=== PATIENT | female | born 1985 | race Caucasian/White ===

== ENCOUNTER → 2017-11-06 11:21 | Outpatient (CLI) | payer SELFPAY ==
[2017-11-06 14:19] LABS: Free T3 3.3 pg/mL (2.18-3.98); T4 Free Direct 1.06 ng/dL (0.76-1.46); Thyroid Stim Hormone (TSH) 0.76 uIU/mL (0.358-3.74)
[2017-11-09 11:32] LABS: HPV APTIMA, High Risk Negative (Negative)
== END ==
PROVIDERS: Visit Provider Obstetrics & Gynecology
DX: E04.9 Nontoxic goiter, unspecified (principal); Z12.4 Encounter for screening for malignant neoplasm of cervix
CPT/HCPCS: 36415; 84439; 84443; 84481; 88175; G0145

== ENCOUNTER → 2018-03-19 16:21 | Outpatient (CLI) | payer SELFPAY ==
[2018-03-19 18:22] LABS: Progesterone Level 3.36 ng/mL (See Comment)
[2018-03-19 21:56] LABS: Chlamydia Trachomatis by PCR Negative (Negative); Neisserai gonorrhoeae by PCR Negative (Negative); Probe Check PASS; Sample Adequacy Control PASS; Specimen Processing Control PASS
== END ==
PROVIDERS: Visit Provider Obstetrics & Gynecology
DX: Z11.3 Encounter for screening for infections with a predominantly sexual mode of transmission (principal); O26.851 Spotting complicating pregnancy, first trimester; Z3A.00 Weeks of gestation of pregnancy not specified
CPT/HCPCS: 36415; 84144; 86850; 86900; 87491; 87591

== ENCOUNTER → 2018-06-25 09:20 | Outpatient (CLI) | payer SELFPAY ==
[2018-06-25 11:04] LABS: Progesterone Level 8.01 ng/mL (See Comment)
[2018-06-25 11:12] LABS: hCG Titer Quant., Serum 22475 mIU/mL (<9 non-preg)
[2018-06-25 19:04] LABS: Chlamydia Trachomatis by PCR Negative (Negative); Neisserai gonorrhoeae by PCR Negative (Negative); Probe Check PASS; Sample Adequacy Control PASS; Specimen Processing Control PASS
== END ==
PROVIDERS: Visit Provider Obstetrics & Gynecology
DX: O20.0 Threatened abortion (principal)
CPT/HCPCS: 36415; 84144; 84702; 87491; 87591

== ENCOUNTER → 2018-07-12 10:23 | Outpatient (CLI) | payer SELFPAY ==
[2018-07-12 13:44] LABS: Color, Urine Yellow (Yellow); Glucose, Dipstick Normal (Normal); Ketone-Dipstick Negative (Negative); Leukocyte Esterase-Dipstick Negative /ul (Negative); Nitrite-Dipstick Negative (Negative); Occult Blood-Urine Negative /ul (Negative); Protein-Dipstick Negative (Negative); Specific Gravity, Urine 1.015 (1.002-1.030); Urine Bilirubin Dipstick Negative (Negative); Urine Clarity Sl. Cloudy (Clear); Urine Urobilinogen Normal (Normal)
[2018-07-12 13:57] LABS: Absolute Lymphocyte Count 1.65 X10^3/ul (0.83-4.51); Absolute Neutrophil Count 7.8 X10^3/uL (2.0-7.7); Basophil# 0.02 X10^3/uL; Basophil% 0.2 % (0-1); Eosinophil# 0.06 X10^3/uL; Eosinophils% 0.6 % (0-5); Hematocrit 38.8 % (37-47); Hemoglobin 12.9 g/dl (12.0-15.0); Lymphocyte # 1.65 X10^3/ul (4.0); Lymphocyte % 16.1 % (19-41); Mean Corp Hgb Conc 33.2 g/gl (32-36); Mean Corpuscular Hgb 28.6 pg (27.0-32.0); Mean Platelet Vol. 9.8 fl (6.2-12.0); Monocyte% 6.8 % (0-10); Neutrophil # 7.78 X10^3/uL (2.7-7.7); Neutrophil % 76.1 % (47-70); Platelet Count 323 K/mm3 (150-450); RBC Distribution Width SD 41.1 fl (35.1-43.9); Red Blood Count 4.51 M/mm3 (4.2-5.4); White Blood Count 10.2 K/mm3 (4.4-11.0)
[2018-07-12 13:59] LABS: Thyroid Stim Hormone (TSH) 0.35 uIU/mL (0.358-3.74)
[2018-07-12 14:04] LABS: POSITIVE COUNT NO; POSITIVE DIFFERENTIAL NO; POSITIVE MORPHOLOGY NO
[2018-07-12 14:42] LABS: HIV - WCH Non-Reactive (Nonreactive)
[2018-07-13 08:45] LABS: HEPATITIS B SURFACE AG Negative (Negative); Hep C Antibodies <0.1 s/co ratio (0.0-0.9)
[2018-07-19 03:40] LABS: Prenatal RPR NONREACTIVE (NONREACTIVE)
== END ==
PROVIDERS: Visit Provider Obstetrics & Gynecology
DX: Z34.81 Encounter for supervision of other normal pregnancy, first trimester (principal)
CPT/HCPCS: 36415; 81002; 84443; 85025; 86703; 86762; 86803; 87340

== ENCOUNTER → 2018-11-15 11:41 | Outpatient (CLI) | payer SELFPAY ==
[2018-11-15 13:53] LABS: Hematocrit 34.6 % (37-47); Hemoglobin 11.2 g/dL (12.0-15.0); Mean Corp Hgb Conc 32.4 g/dL (32-36); Mean Corpuscular Hgb 28.4 pg (27.0-32.0); Mean Corpuscular Volume 87.8 fL (81-99); Mean Platelet Vol. 9.8 fl (6.2-12.0); Platelet Count 249 K/mm3 (150-450); RBC Distribution Width CV 12.7 % (11.6-14.6); RBC Distribution Width SD 40.2 fl (35.1-43.9); Red Blood Count 3.94 M/mm3 (4.2-5.4); White Blood Count 10.6 K/mm3 (4.4-11.0)
[2018-11-15 13:59] LABS: Glucose Challenge Gest 1H 50g 105 mg/dL (70-140)
== END ==
PROVIDERS: Visit Provider Obstetrics & Gynecology
DX: Z34.82 Encounter for supervision of other normal pregnancy, second trimester (principal)
CPT/HCPCS: 36415; 82950; 85027

== ENCOUNTER 2019-01-17 12:28 | Outpatient (CLI) | payer SELFPAY ==
[2019-01-17] MEDS: 0.9 % NaCl (Sterile) Posiflush 10 mL IV (13:10)
[2019-01-17 13:27] LABS: Hematocrit 36.1 % (37-47); Hemoglobin 11.7 g/dL (12.0-15.0); Mean Corp Hgb Conc 32.4 g/dL (32-36); Mean Corpuscular Hgb 28.6 pg (27.0-32.0); Mean Corpuscular Volume 88.3 fL (81-99); Mean Platelet Vol. 9.7 fl (6.2-12.0); Platelet Count 209 K/mm3 (150-450); RBC Distribution Width CV 15.3 % (11.6-14.6); RBC Distribution Width SD 48.2 fl (35.1-43.9); Red Blood Count 4.09 M/mm3 (4.2-5.4); White Blood Count 10.1 K/mm3 (4.4-11.0)
[2019-01-17 13:36] LABS: Prothrombin Time (Protime)PT. 12.8 SECONDS (11.7-14.9)
[2019-01-17 13:37] LABS: Partial Thromboplast Time 31.1 Seconds (24.1-36.2)
[2019-01-17 13:52] LABS: ALB/GLOB Ratio 0.6 RATIO (0.9-2.4); AST(SGOT) 11 U/L (15-37); Alanine Aminotransfer ALT/SGPT 16 U/L (13-56); Albumin, Serum 2.6 g/dL (3.2-5.0); Alkaline Phosphatase 121 U/L (45-117); Anion Gap 10 (5-15); BUN 9 mg/dL (7-18); BUN/Creat Ratio 16.9 RATIO (10-20); Calcium,Total 8.6 mg/dL (8.5-10.1); Chloride 106 mmol/L (98-107); Creatinine, Serum 0.53 mg/dL (0.55-1.02); EST Glomerular Filtration Rate 140 mL/min (>60); Est Glom Filt Rate - Afr Amer 169 mL/min (>60); Globulin 4.1 g/dL (2.2-4.2); Glucose 90 mg/dL (74-106); Protein, Total 6.7 g/dL (6.4-8.2); Sodium Level 139 mmol/L (136-145)
[2019-01-17 13:55] LABS: Protein, Urine (Random) < 6.0 mg/dL (<11.9)
[2019-01-17 14:28] VITALS: BMI 43.0
[2019-01-17 14:50] LABS: Group B Strep DNA By PCR Negative (Negative); Internal Control PASS; Probe Check PASS; Specimen Processing Control PASS
--- NOTE | 2019-01-17 23:55 | OB.TRI.NOTE ---
- Problem List (1) Gestational hypertension Status: Acute Qualifiers: Trimester: third trimester Qualified Code(s): O13.3 - Gestational [-induced] hypertension without significant proteinuria, third trimester Comment: r/o preeclampsia History of Present Illness Date of Service: 01/17/19 Reason For Visit: R/O PRE E Final DEMAR: 02/11/19 Final DEMAR Source: US <20 weeks Gestational age: 36 weeks 3 days History of Present Illness: 33yo @ 36 /7wga sent to L&D to r/o preeclampsia for elevated BPs. Allergies No Known Allergies Allergy (Verified 01/17/19 14:29) Laboratory Studies: Laboratory Tests 01/17/19 01/17/19 01/17/19 Range/Units 13:20 13:10 13:10 WBC (4.4-11.0) K/mm3 RBC (4.2-5.4) M/mm3 Hgb (12.0-15.0) g/dL Hct (37-47) % MCV (81-99) fL MCH (27.0-32.0) pg MCHC (32-36) g/dL RDW Std Deviation (35.1-43.9) fl RDW Coeff of Frank (11.6-14.6) % Plt Count (150-450) K/mm3 MPV (6.2-12.0) fl PT (11.7-14.9) SECONDS INR APTT (24.1-36.2) Seconds Sodium 139 (136-145) mmol/L Potassium 4.0 (3.5-5.1) mmol/L Chloride 106 (98-107) mmol/L Carbon Dioxide 23.0 (21.0-32.0) mmol/L Anion Gap 10 (5-15) BUN 9 (7-18) mg/dL Creatinine 0.53 L Cancelled Est GFR (MDRD) Af Amer 169 Cancelled Est GFR (MDRD) Non-Af 140 Cancelled BUN/Creatinine Ratio 16.9 (10-20) RATIO Glucose 90 (74-106) mg/dL Uric Acid 4.0 (2.6-6.0) mg/dL Calcium 8.6 (8.5-10.1) mg/dL Total Bilirubin 0.20 (0.20-1.00) mg/dL AST 11 L Cancelled ALT 16 Cancelled Alkaline Phosphatase 121 H (45-117) U/L Total Protein 6.7 (6.4-8.2) g/dL Albumin 2.6 L (3.2-5.0) g/dL Globulin 4.1 (2.2-4.2) g/dL Albumin/Globulin Ratio 0.6 L (0.9-2.4) RATIO U Random Total Protein < 6.0 (<11.9) mg/dL Urine Creatinine 16.60 (NO RANGE EST.) mg/dL Protein/Creatinin Ratio TNP Group B Strep DNA (Negative) Specimen Comment 01/17/19 01/17/19 01/17/19 Range/Units 13:10 13:10 11:50 WBC 10.1 (4.4-11.0) K/mm3 RBC 4.09 L (4.2-5.4) M/mm3 Hgb 11.7 L (12.0-15.0) g/dL Hct 36.1 L (37-47) % MCV 88.3 (81-99) fL MCH 28.6 (27.0-32.0) pg MCHC 32.4 (32-36) g/dL RDW Std Deviation 48.2 H (35.1-43.9) fl RDW Coeff of Frank 15.3 H (11.6-14.6) % Plt Count 209 (150-450) K/mm3 MPV 9.7 (6.2-12.0) fl PT 12.8 (11.7-14.9) SECONDS INR 1.0 APTT 31.1 (24.1-36.2) Seconds Sodium (136-145) mmol/L Potassium (3.5-5.1) mmol/L Chloride (98-107) mmol/L Carbon Dioxide (21.0-32.0) mmol/L Anion Gap (5-15) BUN (7-18) mg/dL Creatinine Est GFR (MDRD) Af Amer Est GFR (MDRD) Non-Af BUN/Creatinine Ratio (10-20) RATIO Glucose (74-106) mg/dL Uric Acid (2.6-6.0) mg/dL Calcium (8.5-10.1) mg/dL Total Bilirubin (0.20-1.00) mg/dL AST ALT Alkaline Phosphatase (45-117) U/L Total Protein (6.4-8.2) g/dL Albumin (3.2-5.0) g/dL Globulin (2.2-4.2) g/dL Albumin/Globulin Ratio (0.9-2.4) RATIO U Random Total Protein (<11.9) mg/dL Urine Creatinine (NO RANGE EST.) mg/dL Protein/Creatinin Ratio Group B Strep DNA Negative (Negative) Specimen Comment Not Reportable Physical Exam Vitals: avss NST - FHR Rate Baby A Baseline: 140 Variability:: Moderate Accelerations:: 15 x 15 Decelerations:: None NST Reactive:: Yes FHR Category:: Category I Uterine Activity:: 0/10 Impression/Plan 33yo with gHTN -No si/sx preeclampsia and labs wnl - status reassuring -d/c home
== END 2019-01-17 16:00 | disposition home or self-care (01) ==
LOC: WPOUT 12:31 → WP 12:31
PROVIDERS: Obstetrics & Gynecology; Referring Provider Obstetrics & Gynecology; Visit Provider Obstetrics & Gynecology
DX: O13.3 Gestational [pregnancy-induced] hypertension without significant proteinuria, third trimester (principal); Z3A.36 36 weeks gestation of pregnancy
CPT/HCPCS: 36415; 59025; 59050; 80053; 82570; 84156; 84550; 85027; 85610; 85730; 87077; 87081; 87186; 87653; 99218; G0378

== ENCOUNTER 2019-01-21 15:00 | Outpatient (CLI) | payer SELFPAY ==
[2019-01-21 15:16] VITALS: BMI 42.7
[2019-01-21 17:27] LABS: Absolute Lymphocyte Count 1.42 X10^3/uL (0.83-4.51); Basophil# 0.01 X10^3/uL; Basophil% 0.1 % (0-1); Eosinophil# 0.04 X10^3/uL; Eosinophils% 0.4 % (0-5); Hematocrit 35.7 % (37-47); Hemoglobin 11.5 g/dL (12.0-15.0); Lymphocyte # 1.42 X10^3/ul (4.0); Lymphocyte % 13.7 % (19-41); Mean Corp Hgb Conc 32.2 g/dL (32-36); Mean Corpuscular Hgb 28.2 pg (27.0-32.0); Mean Corpuscular Volume 87.5 fL (81-99); Mean Platelet Vol. 9.7 fl (6.2-12.0); Monocyte# 0.76 X10^3/uL; Monocyte% 7.3 % (0-10); NRBC Flagged by Analyzer 0 % (0-5); Neutrophil # 8.03 X10^3/uL (2.7-7.7); Neutrophil % 77.6 % (47-70); Platelet Count 209 K/mm3 (150-450); RBC Distribution Width CV 15.3 % (11.6-14.6); RBC Distribution Width SD 48.2 fl (35.1-43.9); Red Blood Count 4.08 M/mm3 (4.2-5.4); White Blood Count 10.4 K/mm3 (4.4-11.0)
[2019-01-21 17:59] LABS: Protein, Urine (Random) 20.9 mg/dL (<11.9); Protein:Creat Ratio 235 mg/g CRE (0-200)
[2019-01-21 18:08] LABS: ALB/GLOB Ratio 0.7 RATIO (0.9-2.4); AST(SGOT) 13 U/L (15-37); Alanine Aminotransfer ALT/SGPT 14 U/L (13-56); Albumin, Serum 2.7 g/dL (3.2-5.0); Alkaline Phosphatase 122 U/L (45-117); Anion Gap 7 (5-15); BUN 9 mg/dL (7-18); BUN/Creat Ratio 16.5 RATIO (10-20); Chloride 106 mmol/L (98-107); Creatinine, Serum 0.55 mg/dL (0.55-1.02); EST Glomerular Filtration Rate 136 mL/min (>60); Est Glom Filt Rate - Afr Amer 165 mL/min (>60); Estimated Creatinine Clearance 125.63 ml/min; Globulin 4.1 g/dL (2.2-4.2); Glucose 93 mg/dL (74-106); Potassium 3.9 mmol/L (3.5-5.1); Protein, Total 6.8 g/dL (6.4-8.2); Sodium Level 137 mmol/L (136-145); Uric Acid 4.3 mg/dL (2.6-6.0)
--- NOTE | 2019-01-28 08:39 | OB.TRI.NOTE ---
- Problem List (1) 37 weeks gestation of Status: Acute (2) Gestational hypertension Status: Acute Qualifiers: Trimester: third trimester Comment: r/o preeclampsia History of Present Illness Date of Service: 01/21/19 Reason For Visit: ELEVATED BP Final DEMAR: 02/11/19 Gestational age: 37 Weeks and 0 Days History of Present Illness: 33yo @ 37wga with c/o elevated BP. She called the office and reported elevated BP and was advised to go to L&D. Denies headache, vision changes. Allergies No Known Allergies Allergy (Verified 01/17/19 14:29) Laboratory Studies: Laboratory Tests 01/21/19 01/21/19 01/21/19 Range/Units 16:50 16:50 16:50 WBC 10.4 (4.4-11.0) K/mm3 RBC 4.08 L (4.2-5.4) M/mm3 Hgb 11.5 L (12.0-15.0) g/dL Hct 35.7 L (37-47) % MCV 87.5 (81-99) fL MCH 28.2 (27.0-32.0) pg MCHC 32.2 (32-36) g/dL RDW Std Deviation 48.2 H (35.1-43.9) fl RDW Coeff of Frank 15.3 H (11.6-14.6) % Plt Count 209 (150-450) K/mm3 MPV 9.7 (6.2-12.0) fl Immature Gran % (Auto) 0.900 (0.0-0.9) % Neut % (Auto) 77.6 H (47-70) % Lymph % (Auto) 13.7 L (19-41) % [place] % (Auto) 7.3 (0-10) % Eos % (Auto) 0.4 (0-5) % Baso % (Auto) 0.1 (0-1) % Absolute Neuts (auto) 8.0 H (2.0-7.7) X10^3/uL Absolute Lymphs (auto) 1.42 (0.83-4.51) X10^3/uL Nucleated RBC % 0 (0-5) % Sodium 137 (136-145) mmol/L Potassium 3.9 (3.5-5.1) mmol/L Chloride 106 (98-107) mmol/L Carbon Dioxide 24.0 (21.0-32.0) mmol/L Anion Gap 7 (5-15) BUN 9 (7-18) mg/dL Creatinine 0.55 (0.55-1.02) mg/dL Estim Creat Clear Calc 125.63 ml/min Est GFR (MDRD) Af Amer 165 (>60) mL/min Est GFR (MDRD) Non-Af 136 (>60) mL/min BUN/Creatinine Ratio 16.5 (10-20) RATIO Glucose 93 (74-106) mg/dL Uric Acid 4.3 (2.6-6.0) mg/dL Calcium 9.0 (8.5-10.1) mg/dL Total Bilirubin 0.30 (0.20-1.00) mg/dL AST 13 L (15-37) U/L ALT 14 (13-56) U/L Alkaline Phosphatase 122 H (45-117) U/L Total Protein 6.8 (6.4-8.2) g/dL Albumin 2.7 L (3.2-5.0) g/dL Globulin 4.1 (2.2-4.2) g/dL Albumin/Globulin Ratio 0.7 L (0.9-2.4) RATIO U Random Total Protein 20.9 H (<11.9) mg/dL Urine Creatinine 88.90 (NO RANGE EST.) mg/dL Protein/Creatinin Ratio 235 H (0-200) mg/g CRE Physical Exam Vitals: AVSS NST - FHR Rate Baby A Baseline: 145 Variability:: Moderate Accelerations:: 15 x 15 Decelerations:: Variable NST Reactive:: Yes FHR Category:: Category II Uterine Activity:: 1-2/10 min Impression/Plan Labs not c/w with preeclampsia and no severe range BPs status reassuring d/c home Return for scheduled induction of labor for gestational hypertension
== END 2019-01-21 18:50 | disposition home or self-care (01) ==
LOC: WPOUT 15:08 → WP 15:09
PROVIDERS: Referring Provider Obstetrics & Gynecology; Visit Provider Obstetrics & Gynecology
DX: O13.3 Gestational [pregnancy-induced] hypertension without significant proteinuria, third trimester (principal); Z3A.37 37 weeks gestation of pregnancy
CPT/HCPCS: 36415; 59025; 59050; 80053; 82570; 84156; 84550; 85025; 99218; G0378

== ENCOUNTER 2019-01-27 19:00 | Inpatient (IN) | payer SELFPAY ==
[2019-01-27] MEDS: Lactated Ringers 1,000 ML 50 ML IV (20:00)
[2019-01-27] MEDS: miSOPROStol 25 MCG TABLET VAGINAL (20:27)
[2019-01-27 20:41] VITALS: BMI 43.0
[2019-01-27 20:41] LABS: Absolute Lymphocyte Count 1.62 X10^3/uL (0.83-4.51); Absolute Neutrophil Count 8.2 X10^3/uL (2.0-7.7); Basophil# 0.02 X10^3/uL; Basophil% 0.2 % (0-1); Eosinophil# 0.07 X10^3/uL; Eosinophils% 0.6 % (0-5); Hematocrit 36.2 % (37-47); Hemoglobin 11.6 g/dL (12.0-15.0); Lymphocyte # 1.62 X10^3/ul (4.0); Lymphocyte % 14.9 % (19-41); Mean Corpuscular Hgb 28.1 pg (27.0-32.0); Mean Corpuscular Volume 87.7 fL (81-99); Mean Platelet Vol. 9.7 fl (6.2-12.0); Monocyte# 0.91 X10^3/uL; Monocyte% 8.4 % (0-10); NRBC Flagged by Analyzer 0 % (0-5); Neutrophil # 8.18 X10^3/uL (2.7-7.7); Neutrophil % 75.4 % (47-70); Platelet Count 237 K/mm3 (150-450); RBC Distribution Width SD 47.4 fl (35.1-43.9); Red Blood Count 4.13 M/mm3 (4.2-5.4); White Blood Count 10.9 K/mm3 (4.4-11.0)
[2019-01-27] MEDS: 0.9% Saline Lock 10 ML Syringe IV (21:27)
[2019-01-27 22:28] LABS: ALB/GLOB Ratio 0.6 RATIO (0.9-2.4); AST(SGOT) 11 U/L (15-37); Alanine Aminotransfer ALT/SGPT 13 U/L (13-56); Albumin, Serum 2.6 g/dL (3.2-5.0); Alkaline Phosphatase 133 U/L (45-117); Anion Gap 8 (5-15); BUN 6 mg/dL (7-18); BUN/Creat Ratio 10.8 RATIO (10-20); Calcium,Total 8.7 mg/dL (8.5-10.1); Chloride 106 mmol/L (98-107); Creatinine, Serum 0.56 mg/dL (0.55-1.02); EST Glomerular Filtration Rate 133 mL/min (>60); Est Glom Filt Rate - Afr Amer 161 mL/min (>60); Estimated Creatinine Clearance 123.39 ml/min; Globulin 4.2 g/dL (2.2-4.2); Glucose 90 mg/dL (74-106); Potassium 3.8 mmol/L (3.5-5.1); Protein, Total 6.8 g/dL (6.4-8.2); Sodium Level 137 mmol/L (136-145); Uric Acid 3.8 mg/dL (2.6-6.0)
--- NOTE | 2019-01-27 23:34 | PCM.HP.OB ---
- Problem List (1) Gestational hypertension Status: Acute Qualifiers: Trimester: third trimester Qualified Code(s): O13.3 - Gestational [-induced] hypertension without significant proteinuria, third trimester Comment: r/o preeclampsia History Date of Admission: 01/27/19 Final DEMAR: 02/11/19 Final DEMAR Source: US <20 weeks Gestational age: 37 weeks 6 days History of this : This is a 33 year-old, G [4], P [2012], at 37 6/7 weeks gestational age with gHTN admitted for IOL. Allergies No Known Allergies Allergy (Verified 01/17/19 14:29) Home Medications: Home Medications Vits [Prenatabs FA ] 1 tab PO DAILY 01/17/19 Potassium Bicarb/Mag Combo 21 [Magnesium Fizz-Plus Powder] 183 gm PO 01/27/19 Ibuprofen [Motrin] 600 mg PO Q8H PRN #30 tab 01/29/19 Smoking Status: Never smoker Alcohol: None Number of Fetus(es): 1 NST - FHR Rate Baby A Baseline: 135 Variability:: Moderate Accelerations:: 15 x 15 Decelerations:: None NST Reactive:: Yes FHR Category:: Category I Uterine Activity:: 2/10 History Past Pregnancies: Past Pregnancies Delivery Date GA/ Weeks Route Wt Sex Labor Length Anesthesia Delivery Location FOB 2009 39 7#5 f 27 Epidural [facility] 2013 39 7#7 f 7 Local [facility] 2019 7 [facility] Labs: Mom's Labs & Results 01/27/19 01/27/19 01/27/19 20:00 20:00 20:00 WBC 10.9 RBC 4.13 L Hgb 11.6 L Hct 36.2 L MCV 87.7 MCH 28.1 MCHC 32.0 RDW Std Deviation 47.4 H RDW Coeff of Frank 15.0 H Plt Count 237 MPV 9.7 Immature Gran % (Auto) 0.500 Neut % (Auto) 75.4 H Lymph % (Auto) 14.9 L [place] % (Auto) 8.4 Eos % (Auto) 0.6 Baso % (Auto) 0.2 Absolute Neuts (auto) 8.2 H Absolute Lymphs (auto) 1.62 Nucleated RBC % 0 Sodium 137 Potassium 3.8 Chloride 106 Carbon Dioxide 23.0 Anion Gap 8 BUN 6 L Creatinine 0.56 Estim Creat Clear Calc 123.39 Est GFR (MDRD) Af Amer 161 Est GFR (MDRD) Non-Af 133 BUN/Creatinine Ratio 10.8 Glucose 90 Uric Acid 3.8 Calcium 8.7 Total Bilirubin 0.20 AST 11 L ALT 13 Alkaline Phosphatase 133 H Total Protein 6.8 Albumin 2.6 L Globulin 4.2 Albumin/Globulin Ratio 0.6 L Blood Type O POSITIVE Antibody Screen NEGATIVE Course Did the patient receive Yes care? Labs Blood Type: O RH: POSITIVE RPR/VDRL/Syphilis Nonreactive Rubella status Immune HbSAg Negative Date Done: 07/12/18 Chlamydia Negative Gonorrhea Negative HIV/AIDS Non-Reactive Group B Strep: Positive Current Obstetrical History Gestational Diabetes No Incompetent Cervix No Infertility No IUGR No Macrosomia No Hypertension/Pre-eclampsia Yes: no medications Placenta Previa/Abruption No PTL/PROM No Uterine anomaly No Oligohydramnios No Polyhydramnios No Multiple gestation No Past Medical History Asthma No Diabetes No Hypertension No Heart disease No Mitral valve prolapse No Neurologic/Seizure disorder/ No Migraines Kidney disease No Liver disease No Varicosities No Clotting disorders/Hx of DVT No Thyroid Dysfunction No Other medical diseases No Psychiatric disorders No Major trauma No Abnormal PAP smear No Sleep apnea No Mammogram in the last 2 years No Social History Marital Status: Alleged father Jt Hx Smoking No Smoking Status Never smoker Expected Delivery Method: Spontaneous Vaginal Number of Visits: 14 Physical Exam Vitals: avss General: Alert, Oriented x3, Cooperative, No apparent distress HEENT: Atraumatic, Normocephalic Cardiovascular: Regular rate, Regular Rhythm Lungs: Normal air movement Abdomen: Soft, Non Tender, Non-Distended, Gravid Extremities:: No edema TYPIST: Normal external genitalia Estimated gestational size: Appropriate for gestational size Presentation: Cephalic Assessment/Plan All Active Problems Gestational hypertension (Acute) 37 weeks gestation of (Acute) This is a 33 year-old, G [4], P [2012], at 37 6/7 weeks gestational age. -Misoprostol for IOL
[2019-01-28] MEDS: miSOPROStol 25 MCG TABLET PO ×2 (00:34→04:38)
--- NOTE | 2019-01-28 08:21 | PCM.PN.BLA ---
Progress Note LABOR PROGRESS NOTE Reports regular mild contractions. Denies headache, vision changes. + FM, no LOF or VB. AVSS GEN - NAD, AAO x 3 FHR 135, moderate variability, no accelerations, no decelerations TOCO 3-4/10 min SVE 4/50/-2, moderate and midposition A/P: 33yo @ 38wga with gestational HTN, IOL, Cat I FHR -Amniotomy performed with clear fluid -PCN for GBS ppx -Maternal and statuses reassuring
[2019-01-28] MEDS: Oxytocin 30 units/NS 500 ml 30 UNITS/500 ML IV.SOLN 334 UNITS IV (11:15)
--- NOTE | 2019-01-28 15:26 | PCM.OPRPT ---
Problem List (1) Gestational hypertension Status: Acute Qualifiers: Trimester: third trimester Comment: r/o preeclampsia Vaginal Delivery Maternal Presentation: Medically Indicated Induction Method of Induction: Amniotomy, [facility] Reason for Induction: Gestational Hypertension Amniotic Membrane Rupture Type: Artificial Rupture of Membrane time: 01/28/19 0818h Amniotic Fluid Description: Clear Final DEMAR: 02/11/19 Final DEMAR Source: US <20 weeks Gestational age: 38 Weeks and 0 Days Date of Procedure: 01/28/19 Pre-Operative Diagnosis: 38wga, gestational HTN Post-Operative Diagnosis: 38wga, gestational HTN Surgery/ Procedure Performed: Spontaneous Vaginal Delivery Type of Anesthesia: None Presentation: Vertex Placental Delivery Description: Spontaneous Placenta Disposition: [facility] Cord Vessel Description: 3 Vessels Nuchal Cord Compression: Without compression Cord Entanglement: None Estimated Blood Loss: 250ml Infant A gender: Female (1 minute): 8 (5 minute): 9 Episiotomy Description: None Laceration: Midline, 1st degree Medications given after delivery: IV Pitocin Complications: None
[2019-01-28] MEDS: Ibuprofen 600 MG Tablet PO (15:48)
[2019-01-28 17:15] VITALS: BP 143/73; PULSE 93; RESP 18; TEMP 37.1; O2SAT 96
[2019-01-28 21:15] VITALS: BP 136/89; PULSE 88; RESP 16; TEMP 36.8
[2019-01-28] MEDS: Senna/Docusate Sodium 1 Tablet PO (21:35)
[2019-01-29 00:45] VITALS: BP 115/67; PULSE 81; RESP 18; TEMP 36.4
[2019-01-29 04:20] VITALS: BP 129/68; PULSE 82; RESP 16; TEMP 36.4
[2019-01-29 08:38] VITALS: BP 121/74; PULSE 90; RESP 16; TEMP 37.1
--- NOTE | 2019-01-29 08:54 | PCM.PN.OB ---
Patient Problems: Active and Suspected Problems Gestational hypertension (Acute) r/o preeclampsia Subjective: No complaints. Reports mild headache upon awakening this morning, but resolved with hydration and had felt that she was dehydrated. Nursing is going well. Denies heavy lochia. No vision changes or abdominal pain. Her perineum is sore, but pain manageable. Objective: AVSS - Physical Exam Vitals/I&O's: Vital Signs Temp Pulse Resp BP Pulse Ox 98.8 F 90 16 121/74 H 96 01/29/19 08:38 01/29/19 08:38 01/29/19 08:38 01/29/19 08:38 01/28/19 17:15 Oxygen Delivery Method Room Air Weight: 113.6 kg Body Mass Index (BMI) 43.0 Intake and Output for Last 24 Hours 01/27/19 01/28/19 01/29/19 23:59 23:59 23:59 Intake Total 177.5 / 177.5 1682.50 / 1682.50 Output Total 1400 / 1400 Balance 177.5 / 177.5 282.50 / 282.50 General: Alert, Oriented x3, Cooperative, No apparent distress HEENT: Atraumatic, Normocephalic Lungs: Normal air movement Abdomen: Soft, Non Tender, Non-Distended, - - Fundus firm and nontender Extremities: No edema, No Calf Tenderness Neurological: Neuro grossly intact Psych/Mental Status: Normal Affect, Appropriate, Alert and oriented to time, place, person, mood and affect Current Medications Acetaminophen (Tylenol) 325 - 650 mg PO Q4H PRN PRN PRN Reason: Pain Score 1-3/10 Bisacodyl (Dulcolax) 10 mg RECTAL UD PRN PRN Reason: If no BM Dibucaine (Dibucaine) 1 applic TOPICAL TID PRN PRN; Protocol PRN Reason: Discomfort Hydrocortisone (Hytone) 1 applic TOPICAL TID PRN PRN; Protocol PRN Reason: Discomfort Ibuprofen (Motrin) 600 mg PO Q6H PRN PRN PRN Reason: Pain Score 1-3/10 Methylergonovine Maleate (Methergine) 0.2 mg IM X1 PRN PRN Reason: Excess bleeding/uterine atony Ondansetron HCl (Zofran) 4 mg IV Q4H PRN PRN PRN Reason: NAUSEA Senna/Docusate Sodium (Senokot-S, Paula-Colace) 1 - 2 tablet PO DAILY PRN PRN PRN Reason: Constipation Last Admin: 01/28/19 21:35 Dose: 1 tablet Documented by: Simethicone (Mylicon) 80 mg PO PCHS PRN PRN Reason: Indigestion/Stomach pain Sodium Chloride () 5 - 15 ml IV UD PRN PRN Reason: SALINE FLUSH Medical Necessity - Tobacco Use Smoking Status: Never smoker Assessment/Plan All Active Problems Gestational hypertension (Acute) 37 weeks gestation of (Acute) This is a 33 year-old, G [4], P [3013], PPD#1 s/p doing well. -gHTN -no si/sx worsening - -Plan for d/c home later today
--- NOTE | 2019-01-29 08:58 | DCINST_ITS ---
Discharge Diet: No Restrictions Discharge Activity: Return to Normal Activity, May Shower, May Take a Tub Bath May resume sexual activity in: 6 weeks Suture Line Care: Avoid Pulling/Pushing Cleanse incision/area with: Soap & Water Additional Instructions: If you experience any of the following, contact your healthcare provider. * Bleeding that soaks a pad every hour for 2 hours * Fever 100.4 or higher * Unrelieved incision or abdominal pain * Swelling, redness, discharge or bleeding from your incision or episiotomy site * Your incision begins to separate * Problems urinating (including inability to urinate or burning while urinating). * Visual changes * Severe headache * Flu-like symptoms * Pain or redness in one of both of your breasts * Pain, warmth, tenderness or swelling in your legs, especially the calf area * Frequent nausea and vomiting * Symptoms of depression or anxiety If you experience any of the following, call 911 or go to the nearest Emergency Room. * Chest pain * Problems breathing * Seizure activity * Partial or complete paralysis of a body part, slurred speech, weakness or drooping of the face, or a sudden inability to walk or hold your balance Allergies/Adverse Reactions: Allergies No Known Allergies Allergy (Verified 01/17/19 14:29) Medications to take at Discharge Vits [Prenatabs FA ] 1 tab PO DAILY 01/17/19 Potassium Bicarb/Mag Combo 21 [Magnesium Fizz-Plus Powder] 183 gm PO 01/27/19 Ibuprofen [Motrin] 600 mg PO Q8H PRN #30 tab 01/29/19 The following prescriptions were given: Ibuprofen [Motrin] 600 mg PO Q8H PRN #30 tab PRN Reason: Pain Or Fever Transmission Status: Pending to [id number] Please Follow Up With: Carol Tuttle MD - Nurse visit for BP check When: 1-2 weeks Please Follow Up With: Carol Tuttle MD When: 6 weeks Primary Care Physician: Care Physician,No Primary [Primary Care Provider] - Test Results: Test results from this visit will be discussed in further detail at your follow- up appointment, if applicable.
[2019-01-29] MEDS: Ibuprofen 600 MG Tablet PO (10:41)
[2019-01-29 15:00] VITALS: BP 120/71; PULSE 86; RESP 16; TEMP 36.4
--- NOTE | 2019-01-29 15:05 | NURSING ---
reviewed student nurse charting and it is complete.
== END 2019-01-29 15:10 | disposition home or self-care (01) | DRG 807 ==
PROVIDERS: Admitting Provider Obstetrics & Gynecology; Referring Provider Obstetrics & Gynecology; Visit Provider Obstetrics & Gynecology
DX: O13.4 Gestational [pregnancy-induced] hypertension without significant proteinuria, complicating childbirth (principal); Z37.0 Single live birth; Z3A.38 38 weeks gestation of pregnancy
CPT/HCPCS: 59025; 59050; 80053; 84550; 85025; 86850; 86900; 86901; 99218; J7120; A4216; G0378

== ENCOUNTER → 2021-01-18 15:06 | Outpatient (CLI) | payer SELFPAY ==
[2021-01-18 16:12] LABS: Absolute Lymphocyte Count 1.93 X10^3/uL (0.83-4.51); Absolute Neutrophil Count 6.5 X10^3/uL (2.0-7.7); Basophil# 0.03 X10^3/uL; Basophil% 0.3 % (0-1); Color, Urine Yellow (Yellow); Eosinophil# 0.15 X10^3/uL; Eosinophils% 1.6 % (0-5); Glucose, Dipstick Normal (Normal); Hematocrit 39.8 % (37-47); Hemoglobin 13.3 g/dL (12.0-15.0); Ketone-Dipstick Negative (Negative); Leukocyte Esterase-Dipstick Negative /ul (Negative); Lymphocyte # 1.93 X10^3/ul (0.83-4.51); Lymphocyte % 20.9 % (19-41); Mean Corp Hgb Conc 33.4 g/dL (32-36); Mean Corpuscular Hgb 28.7 pg (27.0-32.0); Mean Platelet Vol. 9.7 fl (6.2-12.0); Monocyte# 0.61 X10^3/uL; Monocyte% 6.6 % (0-10); NRBC Flagged by Analyzer 0 % (0-5); Neutrophil # 6.47 X10^3/uL (2.7-7.7); Neutrophil % 70.3 % (47-70); Nitrite-Dipstick Negative (Negative); Occult Blood-Urine Negative /ul (Negative); Platelet Count 289 K/mm3 (150-450); Protein-Dipstick Negative (Negative); RBC Distribution Width CV 12.5 % (11.6-14.6); RBC Distribution Width SD 38.9 fl (35.1-43.9); Red Blood Count 4.63 M/mm3 (4.2-5.4); Urine Bilirubin Dipstick Negative (Negative); Urine Clarity Clear (Clear); Urine Urobilinogen Normal (Normal); White Blood Count 9.2 K/mm3 (4.4-11.0)
[2021-01-18 16:35] LABS: Thyroid Stim Hormone (TSH) 0.86 uIU/mL (0.358-3.74)
[2021-01-18 16:40] LABS: Amphetamine Urine VISTA NEGATIVE (<1000 ng/mL); Barbiturate Urine VISTA NEGATIVE (< 200 ng/mL); Benzodiazepine Urine VISTA NEGATIVE (< 200 ng/mL); Cocaine Urine VISTA NEGATIVE (< 300 ng/mL); Ecstacy Urine VISTA NEGATIVE (< 500 ng/mL); Methadone Urine VISTA NEGATIVE (< 300 ng/mL); PCP Urine VISTA NEGATIVE (< 25 ng/mL); THC Urine VISTA NEGATIVE (< 50 ng/mL); Vista UDS pH Range 6
[2021-01-18 16:53] LABS: hCG Titer Quant., Serum 17297 mIU/mL (1-3)
[2021-01-18 17:26] LABS: HIV - WCH Non-Reactive (Nonreactive); Hepatitis B Surface Antigen Non-Reactive (Nonreactive); Hepatitis C Antibody Non-Reactive (Nonreactive); Progesterone Level 14.59 ng/mL (See Comment); Rubella IgG Reactive (Nonreactive); Syphilis Antibodies Non-reactive; Vitamin D,25 Hydroxy 26.5 ng/mL
== END ==
PROVIDERS: Visit Provider Obstetrics & Gynecology
DX: Z34.81 Encounter for supervision of other normal pregnancy, first trimester (principal); E28.8 Other ovarian dysfunction
CPT/HCPCS: 36415; 80307; 81002; 82306; 84144; 84443; 84702; 85025; 86703; 86762; 86780; 86803; 87086; 87088; 87340

== ENCOUNTER → 2021-02-18 10:46 | Outpatient (CLI) | payer SELFPAY | PROVIDERS: Visit Provider Obstetrics & Gynecology | DX: N96 Recurrent pregnancy loss (principal) | CPT/HCPCS: 36415 ==

== ENCOUNTER 2021-04-28 12:13 | Outpatient (CLI) | payer SELFPAY ==
[2021-04-28 14:08] LABS: Progesterone Level 7.67 ng/mL (See Comment)
== END 2021-04-28 23:59 | disposition home or self-care (01) ==
LOC: WOBLAB 12:13
PROVIDERS: Visit Provider Obstetrics & Gynecology
DX: E28.1 Androgen excess (principal); E28.8 Other ovarian dysfunction; N96 Recurrent pregnancy loss
CPT/HCPCS: 36415; 84144

== ENCOUNTER 2021-05-06 08:34 | Outpatient (CLI) | payer SELFPAY ==
[2021-05-06 11:11] LABS: T3 Total - Triiodothyronine 1.22 ng/mL (0.6-1.81)
[2021-05-06 12:11] LABS: Estradiol 29.7 pg/mL; Follicle Stimulating Hormone 5.1 mIU/mL; Free T3 3.3 pg/mL (2.18-3.98); Prolactin 7.8 ng/mL; T4 Free Direct 1.06 ng/dL (0.76-1.46); Thyroid Stim Hormone (TSH) 1.12 uIU/mL (0.358-3.74)
[2021-05-07 09:49] LABS: Sex Hormone-binding Globulin 51.7 nmol/L (24.6-122.0)
== END 2021-05-06 23:59 | disposition home or self-care (01) ==
LOC: WOBLAB 08:39
PROVIDERS: Visit Provider Obstetrics & Gynecology
DX: E28.8 Other ovarian dysfunction (principal); E28.1 Androgen excess; E03.9 Hypothyroidism, unspecified
CPT/HCPCS: 36415; 82533; 82627; 82670; 83001; 84146; 84270; 84403; 84439; 84443; 84480; 84481; 82626

== ENCOUNTER 2021-05-24 09:20 | Outpatient (CLI) | payer SELFPAY ==
[2021-05-24 11:17] LABS: Glucose 75GTT - 30 minutes 139 mg/dL (100-160)
[2021-05-24 11:21] LABS: Insulin 75GTT - 30 MIN 62.6 mU/L (Not Estab.)
[2021-05-24 11:46] LABS: Glucose 75GTT - Fasting 88 mg/dL (70-99)
[2021-05-24 13:32] LABS: Glucose 75GTT - 60 minutes 150 mg/dL (100-160)
[2021-05-24 13:32] LABS: Glucose 75GTT - 120 minutes 88 mg/dL (70-140)
[2021-05-24 13:48] LABS: Insulin 75GTT - 60 min 83.6 mU/L (Not Estab)
== END 2021-05-24 23:59 | disposition home or self-care (01) ==
LOC: WOBLAB 09:20
PROVIDERS: Visit Provider Obstetrics & Gynecology
DX: Z13.1 Encounter for screening for diabetes mellitus (principal)
CPT/HCPCS: 36415; 82951; 82952; 83525